=== PATIENT | female | born 1945 | race Caucasian/White ===

== ENCOUNTER 2016-08-27 09:45 | Inpatient (IN) | payer MEDICARE, OTHER ==
[~2016-08-27] VITALS: Ht 152.4 cm; Wt 83.3 kg
[~2016-08-27 09:45] MED LIST: AMBIEN5 MG PO; MULTIPLE VITAMI1 TA1 PO; NORCO 10/325 TA1 TA1 PO; TYLENOL ARTHRI650 MG PO
[2016-08-27 14:11] LABS: BASOPHILS 0.1 % (0.0-2.0); EOSINOPHILS 0.1 % (0-7); HEMATOCRIT 43.4 % (36.0-48.0); HEMOGLOBIN 14.8 g/dL (12-16); IMMATURE GRANULOCYTES 0.1 % (0-5); LYMPHOCYTES 20.7 % (15-50); MCH 30.1 pg (26.0-34.0); MCHC 34.1 g/dL (31.0-37.0); MCV 88.4 fL (80.0-100.0); MEAN PLATELET VOLUME 10.4 fL (7.4-10.4); MONOCYTES 7.6 % (2-11); NEUTROPHILS 71.4 % (40-80); PLATELET COUNT 232 10x3/uL (130-400); RBC 4.91 10x6/uL (4.00-5.40); RDW 12.3 % (11.5-14.5); WBC 7.1 10x3/uL (4.8-10.8)
[2016-08-27 14:26] LABS: ALBUMIN 3.8 g/dL (3.4-5.0); ALKALINE PHOSPHATASE 80 U/L (46-116); ALT (SGPT) 29 U/L (10-68); BILIRUBIN - TOTAL 0.46 mg/dL (0.2-1.3); CALC OSMOLALITY 278 mosm/kg (275-300); CALCIUM 9.2 mg/dL (8.5-10.1); CARBON DIOXIDE 32.2 mmol/L (21.0-32.0); CHLORIDE - SERUM 100 mmol/L (98-107); CREATININE - SERUM 0.8 mg/dL (0.6-1.3); GLUCOSE 128 mg/dL (74-106); POTASSIUM - SERUM 4.2 mmol/L (3.5-5.1); PROTEIN - SERUM 8.2 g/dL (6.4-8.2); SODIUM 138 mmol/L (136-145); UREA NITROGEN 15 mg/dL (7-18); eGFR NON AFRICAN AMERICAN 75 mL/min (90-120)
[2016-08-27 14:27] LABS: APTT 25.6 SECONDS (22.8-39.4); INR 1.03 (0.85-1.17); PROTIME 13.3 SECONDS (11.6-15.0)
[2016-08-27 14:36] LABS: TROPONIN-I < 0.017 ng/mL (0.000-0.060)
[2016-08-27 14:47] LABS: APPEARANCE CLEAR (CLEAR); BILIRUBIN NEGATIVE (NEGATIVE); COLOR YELLOW (YELLOW); GLUCOSE NEGATIVE (NEGATIVE); KETONE NEGATIVE (NEGATIVE); LEUKOCYTE ESTERASE NEGATIVE (NEGATIVE); NITRITE NEGATIVE (NEGATIVE); PROTEIN NEGATIVE (NEGATIVE); UROBILINOGEN NORMAL (NORMAL)
--- NOTE | 2016-08-27 18:37 | NUR ---
1835-RECEIVED VIA WHEELCHAIR TO ROOM, GO TO RESTROOM TO VOID. SALINE LOCK SEEN TO RIGHT HAND, WILL PLACE ON HEART MONITOR ORDERED. EMESIS BAG GIVEN TO PATIENT. WILL ADMIT.
[2016-08-27] MEDS ORDERED: ULTRAM50 MG PO (18:42)
[2016-08-27] MEDS ORDERED: COREG12.5 MG PO (18:43)
[2016-08-27] MEDS ORDERED: CELEBREX200 MG PO (18:43)
[2016-08-27] MEDS ORDERED: HYDROCHLOROTH12.5 M1 PO (18:43)
[2016-08-27] MEDS ORDERED: DETROL LA4 MG PO (18:44)
--- NOTE | 2016-08-27 19:54 | NUR ---
RESUME CARE OF PT, IV-R. HAND-NS@ 75, [id number], DENIES ANY NEEDS, CALL LIGHT IN REACH, BED IS LOW, SRX2, WILL CONTINUE TO MONITOR
--- NOTE | 2016-08-27 20:22 | NUR ---
SCD ARE ON BILATERAL LOWER LEGS
[2016-08-27 21:44] VITALS: BP 168/59
[2016-08-28 00:01] VITALS: Ht 152.4 cm; Wt 83.3 kg
[2016-08-28 00:35] VITALS: BP 132/55
--- NOTE | 2016-08-28 03:06 | NUR ---
PT SLEEPING, CALL LIGHT IN REACH, SCD ARE ON, BED IS LOW, SRX2,
[2016-08-28 04:36] VITALS: BP 148/56
[2016-08-28 05:11] LABS: BASOPHILS 0.3 % (0.0-2.0); EOSINOPHILS 1.2 % (0-7); HEMATOCRIT 38.6 % (36.0-48.0); HEMOGLOBIN 12.8 g/dL (12-16); IMMATURE GRANULOCYTES 0.2 % (0-5); LYMPHOCYTES 35.7 % (15-50); MCH 29.8 pg (26.0-34.0); MCHC 33.2 g/dL (31.0-37.0); MEAN PLATELET VOLUME 10.4 fL (7.4-10.4); MONOCYTES 8.7 % (2-11); NEUTROPHILS 53.9 % (40-80); PLATELET COUNT 231 10x3/uL (130-400); RBC 4.29 10x6/uL (4.00-5.40); RDW 12.4 % (11.5-14.5); WBC 6.6 10x3/uL (4.8-10.8)
[2016-08-28 05:27] LABS: ANION GAP 11.1 mmol/L (8-16); CALCIUM 8.5 mg/dL (8.5-10.1); CARBON DIOXIDE 30.1 mmol/L (21.0-32.0); CREATININE - SERUM 0.9 mg/dL (0.6-1.3)
[2016-08-28 05:30] LABS: POTASSIUM - SERUM 3.2 mmol/L (3.5-5.1)
--- NOTE | 2016-08-28 07:47 | NUR ---
AM ROUNDING- PT SITTING UP IN BED WITH EYES OPEN RESTING. FAMILY MEMBERS AT BEDSIDE. DR. RAZA IS CURRENTLY IN ROOM. ON MONITOR SHOWING SB, HR 57. ON ROOM AIR. IV SEEN TO RIGHT HAND WITH NS RUNNING AT 75CC/HR. SCDS ON. PT IS ALERT AND ORIENTED. NO NEED AT CURRENT TIME. WILL CONTINUE TO MONITOR AND CONTINUE WITH PLAN OF CARE.
[2016-08-28 08:00] VITALS: BP 145/60
--- NOTE | 2016-08-28 08:03 | NUR ---
ULTR[facility] CALLED AND STATED TO HAVE PT NPO FOR PROCEDURE AND TO HAVE 18G OR 20G CATHETER. WENT AND INFORMED PT TO NOT EAT OR DRINK ANYTHING UNTIL AFTER PROCEDURE. PLACED NPO SIGN ON DOOR. PT AGREED. ULTRASOUND STATED IT WAS FINE TO GO AHEAD AND GIVE PT HER AM MEDICATION WITH SIP OF WATER (ASPIRIN AND COREG). WILL CONTINUE TO MONITOR.
--- NOTE | 2016-08-28 10:02 | NUR ---
INSERTED 20G IV CATHETER TO PTS LEFT FOREARM X2 STICK. TOLERATED WELL. CT REQUESTED A 18G OR 20G FOR PROCEDURE. CALLED CT TO INFORM THEM OF THIS. WILL CONTINUE TO MONITOR.
--- NOTE | 2016-08-28 10:34 | NUR ---
1025- PT TO CT VIA WHEELCHAIR.
--- NOTE | 2016-08-28 11:06 | NUR ---
1050- PT BACK FROM CT VIA WHEELCHAIR. WILL CONTINUE TO MONITOR.
[2016-08-28 12:00] VITALS: BP 151/55
--- NOTE | 2016-08-28 12:29 | HP ---
PATIENT: JACKELYN SHERIFF MEDICAL RECORD: [id number] ACCOUNT: [id number] LOCATION:[address] : 43 ADMISSION DATE: 08/27/16 HISTORY AND PHYSICAL EXAMINATION HISTORY OF PRESENT ILLNESS: A 70-year-old female who presented to the Emergency Room with severe dizziness, unsteady gait, could barely stand unassisted, was initially dry had to slow down, could barely stay on the proper nabeel, made it home, symptoms persisted, presented to the Emergency Room. PAST MEDICAL HISTORY: Significant for hypertension. PAST SURGICAL HISTORY: Hysterectomy, bunionectomy and cholecystectomy. CURRENT MEDICATIONS: Listed as carvedilol 12.5 mg b.i.d., Detrol for overactive bladder and diuretic. ALLERGIES: No known drug allergies. REVIEW OF SYSTEMS: GENERAL: No acute change in weight or appetite. HEENT: Denies cephalgia. Does admit sinus and ear pressure. Denies visual changes. Denies tinnitus, epistaxis, or dysphagia. CARDIOVASCULAR: Denies chest pain or palpitations. PULMONARY: Denies hemoptysis. Denies night sweats. CARDIOVASCULAR: Denies chest pain or palpitations. PULMONARY: Denies hemoptysis. GASTROINTESTINAL: Denies hematemesis, hematochezia, or melena. Does admit to nausea and vomiting with the room spinning sensation. GENITOURINARY: Denies dysuria. Denies any change in frequency. MUSCULOSKELETAL: No acute changes. NEUROLOGIC: Ataxic gait, falls if unassisted. Acute onset. Room spinning sensation with rotation with brisk head movements. PHYSICAL EXAMINATION: VITAL SIGNS: Temp 97.4, blood pressure 133/57, heart rate 54, respirations 16 and O2 sats 94% on room air. GENERAL: Alert, oriented, yzna-tl-espdzyit distress secondary to above. HEENT: Normocephalic and atraumatic. Eyes: Pupils are equal, round and reactive. Nose: Nares patent. Throat: No erythema, no exudates. NECK: Supple. No lymphadenopathy, no JVD and no carotid bruits. HEART: Regular rate and rhythm. No S3, S4. No rub. LUNGS: Clear to auscultation bilaterally. Breathing is nonlabored. ABDOMEN: Soft, nontender. Bowel sounds in all 4 quadrants. EXTREMITIES: Present times 4. No edema. NEUROLOGIC: Cranial nerves II through XII appear intact. Ataxic/unsteady gait with standing, with any attempt at ambulation. LABORATORY DATA: CT of the head without contrast, no acute intracranial pathology. Chest x-ray, mild interstitial prominence. No significant change. Urinalysis: Yellow, clear, normal UA. CBC: White count 7.1, hemoglobin 14.8, hematocrit 43.4 and platelets 232. PT is 13.3, INR is 1.03. Sodium 138, potassium 4.2, chloride 100, bicarbonate 32.2, BUN 15, creatinine 0.8, glucose 128. T-bili 0.46, AST 26, ALT 29. Troponin less than 0.017. Albumin 3.8. HISTORY AND PHYSICAL [id number] JACKELYN SHERIFF ASSESSMENT AND PLAN: Persistent nausea and vomiting, unsteady gait, falls, vertigo symptoms. Neurology consulted. We will also support with cautious IV hydration with normal saline 75 mL per hour. Zofran 4 mg IV q.4 hours p.r.n. nausea and vomiting. With present blood pressure slightly low, we will reduce her dose on her carvedilol to 6.25 mg p.o. b.i.d., monitor. Supportive care. Meclizine 25 mg p.o. q.8 hours p.r.n. for vertigo symptoms. Also, concern for possible transient ischemic attack, cerebrovascular accident. Again, neurology was consulted to further evaluate. TRANSINT:[id number] Voice Confirmation ID: [id number] DOCUMENT ID: [id number] CHRIS LOVE DO at 1229 CC: [id number] DICTATION DATE: 08/27/161942 [employer] SUPERINTENDENT: 08/27/162045 ADM IN [facility] [address] [place] [address]
--- NOTE | 2016-08-28 13:03 | NUR ---
MI WITH TELEMETRY INFORMED ME THAT PT WENT INTO UNCONTROLLED A-FIB WITH HR OF 111. WENT TO CHECK ON PT AND PT STATES " I FEEL FINE". INSTRUCTED PT TO USE CALL LIGHT AND NOTIFY STAFF IF HAVING ANY ABNORMAL SYMPTOMS, PT AGREED. DR. AGUIAR IS ON UNIT. INFORMED DR. AGUIAR OF THIS. DR. AGUIAR STATED TO DO AN EKG ON PT STAT. DID AN EKG ORDERED. WILL CONTINUE TO MONITOR.
[2016-08-28 16:00] VITALS: BP 161/60
--- NOTE | 2016-08-28 17:01 | NUR ---
PT LAYING IN BED ON BACK WITH EYES CLOSED RESTING. NO NEED AT CURRENT TIME. WILL CONTINUE TO MONITOR.
--- NOTE | 2016-08-28 19:15 | NUR ---
RECEIVED REPORT, IV-R.HAND-EMMETT, LFA-NS-75, [id number], BED IS LOW, SRX2, SCD ARE ON, DENIES ANY NEEDS, CALL LIGHT IN REACH, WILL CONTINUE TO MONITOR
[2016-08-28 20:30] VITALS: BP 110/50
[2016-08-29 00:30] VITALS: BP 136/52
--- NOTE | 2016-08-29 00:56 | NUR ---
COASTAL AND ESTUARY SPECIALIST AT BEDSIDE FOR VS, NEEDS ADDRESSED. CALL LIGHT IN REACH. WILL CONT TO MONITOR.
--- NOTE | 2016-08-29 03:20 | NUR ---
EYES CLOSED, CALL LIGHT IN REACH, BED IS LOW, SCD ON,WILL CONTINUE TO MONITOR
[2016-08-29 04:30] VITALS: BP 144/63
[2016-08-29 05:14] LABS: BASOPHILS 0.1 % (0.0-2.0); EOSINOPHILS 2.5 % (0-7); HEMATOCRIT 38.4 % (36.0-48.0); HEMOGLOBIN 12.7 g/dL (12-16); IMMATURE GRANULOCYTES 0.1 % (0-5); LYMPHOCYTES 34.8 % (15-50); MCH 30.4 pg (26.0-34.0); MCHC 33.1 g/dL (31.0-37.0); MCV 91.9 fL (80.0-100.0); MEAN PLATELET VOLUME 10.5 fL (7.4-10.4); MONOCYTES 7.8 % (2-11); NEUTROPHILS 54.7 % (40-80); RBC 4.18 10x6/uL (4.00-5.40); RDW 12.6 % (11.5-14.5); WBC 6.7 10x3/uL (4.8-10.8)
[2016-08-29 05:18] LABS: PLATELET COUNT 184 10x3/uL (130-400)
[2016-08-29 05:27] LABS: ANION GAP 7.9 mmol/L (8-16); CALCIUM 7.8 mg/dL (8.5-10.1); CARBON DIOXIDE 30.3 mmol/L (21.0-32.0); POTASSIUM - SERUM 4.2 mmol/L (3.5-5.1)
--- NOTE | 2016-08-29 07:22 | NUR ---
AM ROUNDING- PT LAYING IN BED ON LEFT SIDE WITH EYES CLOSED RESTING. HOB ELEVATED AT 30 DEGREES. ON MONITOR SHOWING SR, HR 62. IV SEEN TO RIGHT HAND THAT IS CURRENLTY SALINE LOCKED. 20G IV SEEN TO LEFT FOREARM WITH NS RUNNING AT 75CC/HR. ON ROOM AIR. SCDS ARE CURRENLTY ON PT. NO NEED AT CURRENT TIME. WILL CONTINUE TO MONITOR AND CONTINUE WITH PLAN OF CARE.
[2016-08-29 08:00] VITALS: BP 167/57
[2016-08-29 12:00] VITALS: BP 164/59
[2016-08-29 16:00] VITALS: BP 155/49
--- NOTE | 2016-08-29 18:23 | NUR ---
PT LAYING IN BED ON BACK WITH EYES OPEN RESTING. IV INFUSING. ON ROOM AIR. DENIES ANY NEED AT CURRENT TIME. WILL CONTINUE TO MONITOR.
[2016-08-29 20:00] VITALS: BP 153/44
--- NOTE | 2016-08-29 20:26 | NUR ---
RESUMED CARE OF PT, LYING IN BED WIHT EYES CLOSED RESPIRATIONS EVEN AND UNLABORED ON ROOM AIR. 56 SB ON TELEMETRY. RIGHT HAND SALINE LOCKED AND LEFT FOREARM INFUSING NS @ 75. NO NEEDS NOTED AT THIS TIME, WILL CONTINUE TO MONITOR. SEE NURSE ASSESSMENT. CALL LIGHT IN REACH.
[2016-08-30 00:15] VITALS: BP 120/41
[2016-08-30 04:42] VITALS: BP 166/47
[2016-08-30 05:37] LABS: ANION GAP 9.3 mmol/L (8-16); CALCIUM 8.3 mg/dL (8.5-10.1); CARBON DIOXIDE 29.4 mmol/L (21.0-32.0); CREATININE - SERUM 0.9 mg/dL (0.6-1.3); POTASSIUM - SERUM 3.7 mmol/L (3.5-5.1)
--- NOTE | 2016-08-30 06:07 | NUR ---
NO CHANGES FROM PREVIOUS ASSESSMENT, CALL LIGHT IN REACH.
--- NOTE | 2016-08-30 08:09 | NUR ---
ASSESSMENT DONE. PT LAYING IN BED WATCHING TV. A/O. MAILROOM CLERK IN ROOM WITH PT. PT C/O PAIN. NO MEDS ORDERED, AWAITING DR'S ORDER. PT DENIES OTHER NEEDS AT THIS TIME. CALL LIGHT WITH IN REACH. WILL CONT. TO MONITOR.
--- NOTE | 2016-08-30 08:41 | NUR ---
IV PATENT. STUDENT AT BS ASSISTING TO BR. WILL CONT. PLAN OF CARE.
[2016-08-30 08:50] VITALS: BP 122/82
--- NOTE | 2016-08-30 10:09 | EC ---
PATIENT:JACKELYN SHERIFF DATE OF SERVICE: 08/27/16 SEX: F MEDICAL RECORD: [id number] DATE OF : 41 LOCATION:D.M2 D.213 AGE OF PATIENT: 70 ADMISSION DATE: 08/27/16 REFERRING PHYSICIAN: INTERPRETING PHYSICIAN: MARK JARQUIN MD ECHOCARDIOGRAM REPORT ECHO CHARGES 4 ECHO COMPLETE CLINICAL DIAGNOSIS: CEREB.INFARCT ECHOCARDIOGRAPHIC MEASUREMENTS (adult normal given) AC root (d.<3.7cm) 2.9 LV Septum d (<1.2 cm> 1.4 Valve Excursion 1.7 LV Septum (systole) 2.1 Left Atria (s.<4.0cm> 3.9 LVPW d(<1.2cm) 1.4 RV (d.<2.3cm) 2.8 LVPW (sytole) 2.1 LV diastole(<5.6CM) 5.3 MV E-F(>70mm/sec) LV systole 3.5 LVOT Diameter 1.7 MV exc.(>10mm) Est.ejection fraction (50-75%) Pericardial Effusion N DOPPLER: LVIT A 89.0 E 114 LA RVSP 32.0 LVOT 142 AOP1/2T Asc. Ao 180 RVOT 73.0 RA PA 97.0 AV Gradient Peak 13.0 AV Mean 6.7 AV Area 1.6 MV Gradient Peak 7.5 MV Mean 2.0 MV Area COMMENTS: ECHO WITH BUBBLE STUDY Railway Signal Electrician: Mayo BEAR Supervisor Cutting Department:1 Dr. Jarquin TAPE# PACS DATE OF SERVICE: 08/28/2016 FINDINGS: 1. Left ventricular chamber size is within normal limits. Left ventricular systolic function is normal. Overall ejection fraction estimated at 60%. 2. Left atrium, right atrium and right ventricular chamber sizes are within normal limits. 3. Valvular structures have normal structure and motion. 4. Doppler interrogation reveals only mild mitral regurgitation, mild tricuspid regurgitation. No other valvular insufficiency or stenosis. ECHOCARDIOGRAM REPORT [id number] JACKELYN SHERIFF 5. No evidence of pericardial effusion or left ventricular thrombus. 6. No cardiac source of neurologic emboli. 7. Bubble study was done. There is no seahg-sy-bgfz or qprg-xv-lfpjx shunt. TRANSINT:[id number] Voice Confirmation ID: [id number] DOCUMENT ID: [id number] MARK JARQUIN MD at 1009 CC: [id number] DICTATION DATE: 08/29/16 1154 GLAZE HANDLER: 08/29/16 2237 ADM IN [place] [id number] [place] [id number]
[2016-08-30 11:01] VITALS: BP 129/52
--- NOTE | 2016-08-30 14:25 | NUR ---
IV TO PT'S LEFT FA INFILTRATED. D/C'D IV. GROUNDS MAINTENANCE MANAGER REPLACED WITH 20G TO RT FOREARM. IV TO RT HAND D/C'D WELL. PT AMBULATING IN HALLS WITH PT. TOLERATING WELL.
--- NOTE | 2016-08-30 14:51 | NUR ---
MID-STREAM URINE COLLECTION KIT TAKEN INTO PT'S ROOM. PT EDUCATED ON HOW TO PROVIDE MID-STREAM URINE SAMPLE. VERBALIZED UNDERSTANDING.
[2016-08-30 15:00] VITALS: BP 151/50
[2016-08-30 18:19] LABS: APPEARANCE CLEAR (CLEAR); BILIRUBIN NEGATIVE (NEGATIVE); COLOR YELLOW (YELLOW); GLUCOSE NEGATIVE (NEGATIVE); KETONE NEGATIVE (NEGATIVE); LEUKOCYTE ESTERASE NEGATIVE (NEGATIVE); NITRITE NEGATIVE (NEGATIVE); PROTEIN NEGATIVE (NEGATIVE); SPECIFIC GRAVITY 1.015 (1.005-1.020); UROBILINOGEN NORMAL (NORMAL)
--- NOTE | 2016-08-30 19:55 | NUR ---
GETTING BACK IN BED FROM USING THE BATHROOM, DENIES NEEDS, ASSESSMENT COMPLETE, CALL LIGHT IN REACH, BED LOWEST POSITION, WILL CONTINUE TO MONITOR
[2016-08-30 20:00] VITALS: BP 127/48
--- NOTE | 2016-08-31 00:27 | NUR ---
GASOLINE POWER SHOVEL OPERATOR AT BEDSIDE FOR VS, NEEDS ADDRESSED. CALL LIGHT IN REACH. WILL CONT TO MONITOR.
[2016-08-31 02:00] VITALS: BP 137/50
[2016-08-31 04:00] VITALS: BP 173/57
[2016-08-31 04:17] LABS: BASOPHILS 0.3 % (0.0-2.0); EOSINOPHILS 3.4 % (0-7); HEMATOCRIT 36.3 % (36.0-48.0); HEMOGLOBIN 12.3 g/dL (12-16); IMMATURE GRANULOCYTES 0.1 % (0-5); LYMPHOCYTES 31.4 % (15-50); MCH 30.7 pg (26.0-34.0); MCHC 33.9 g/dL (31.0-37.0); MCV 90.5 fL (80.0-100.0); MONOCYTES 9.9 % (2-11); NEUTROPHILS 54.9 % (40-80); PLATELET COUNT 176 10x3/uL (130-400); RBC 4.01 10x6/uL (4.00-5.40); RDW 12.2 % (11.5-14.5); WBC 7.2 10x3/uL (4.8-10.8)
[2016-08-31 04:50] LABS: ANION GAP 8.3 mmol/L (8-16); CALCIUM 8.4 mg/dL (8.5-10.1); CARBON DIOXIDE 34.1 mmol/L (21.0-32.0); POTASSIUM - SERUM 3.4 mmol/L (3.5-5.1)
[2016-08-31] MEDS ORDERED: LISINOPRIL10 MG PO (06:51)
[2016-08-31] MEDS ORDERED: MECLIZINE HCL12.5 MG PO (06:53)
--- NOTE | 2016-08-31 07:59 | NUR ---
ASSESSMENT DONE. PT A/O. STATES DIZZINESS HAS IMPROVED. DENIES NEEDS AT THIS TIME. CALL LIGHT WITH IN REACH. WILL CONT. TO MONITOR.
[2016-08-31 08:39] VITALS: BP 138/63
--- NOTE | 2016-08-31 09:32 | NUR ---
RESTS IN BED WITHOUT NEEDS VOICED. VISITOR AT BS. CALL LIGHT IN REACH. WILL CONT. PLAN OF CARE.
--- NOTE | 2016-08-31 10:25 | NUR ---
D/C INSTRUCTIONS GIVEN TO PT. PT VERBALIZED UNDERSTANDING. IV REMOVED, AND TELEMETRY REMOVED. PT AWAITING TRANSPORTATION HOME.
--- NOTE | 2016-08-31 10:46 | NUR ---
Patient Name: JACKELYN SHERIFF Admission Status: ER Accout number: [id number] Admission Date: 08-27-2016 : 1945 Admission Diagnosis: Attending: LUIS FERNANDO Current LOS: 4 Anticipated DC Date: 08-31-2016 Planned Disposition: Home Primary Insurance: MEDICARE A & B Discharge Planning Comments: * Is the patient Alert and Oriented? Yes 0 * How many steps to enter\exit or inside your home? 3 0 * PCP DR. SPEARS 0 * Pharmacy [facility] 0 * Preadmission Environment Home with Family 0 * ADLs Independent 0 * Equipment Cane Walker Wheelchair 0 * Other Equipment PT REPORTS HAVING MEDICAL EQUIPMENT FROM [facility], NO PROVIDER PREFERENCE 0 * List name and contact numbers for known caregivers / representatives who currently or will assist patient after discharge: NANCY SUNG, SON, 0 * Community resources currently utilized None 0 * Please name any agencies selected above. NONE 0 * Additional services required to return to the preadmission environment? No 0 * Can the patient safely return to the preadmission environment? Yes 0 * Has this patient been hospitalized within the prior 30 days at any hospital? No 0 CM MET WITH PT IN ROOM TO DISCUSS DISCHARGE PLANNING AND NEEDS. PT REPORTS LIVING AT HOME INDEPENDENTLY WITH HER ADULT SON ADN DAUGHTER IN LAW. PT HAS CANE, WALKER AND WHEELCHAIR THAT SHE DOES NOT USE AT HOME. PT HAS NO MEDICAL EQUIPMENT PROVIDER PREFERNCE. PT HAS NO OUTSIDE SERVICES ASSISTING IN THE HOME. CM DISCUSSED AVAILABILITY OF HOME HEALTH, REHAB SERVICES AND MEDICAL EQUIPMENT. PT DENIES DISCHARGE NEEDS, REPORTS HER DAUGHTER IN LAW WILL PICK HER UP FOR DISCHARGE HOME. IMPORTANT MESSAGE FROM MEDICARE PROVIDED AND EXPLAINED. Caramel Coloring Operator: Ross Matson
--- NOTE | 2016-08-31 10:50 | NUR ---
PT D/C HOME VIA PRIVATE VEHICLE. NURSE STUDENT ASSISTED PT TO FRONT ENTRANCE VIA WC TO MEET PT'S DAUGHTER.
--- NOTE | 2016-10-17 08:20 | DS ---
PATIENT:JACKELYN SHERIFF :41 MEDICAL RECORD: [id number] DISCHARGE SUMMARY ADMISSION DATE: 08/27/16 DISCHARGE DATE: 08/31/16 DATE OF ADMISSION: 08/27/2016 DATE OF DISCHARGE: 08/31/2016 CONDITION ON DISCHARGE: Improved. ADMITTING DIAGNOSES: Persistent nausea and vomiting, unsteady gait, falls and vertigo. DISCHARGE DIAGNOSES: Dizziness, unsteady gait, essential hypertension, nausea, vomiting and history of falling. HOSPITAL COURSE: The patient is a 70-year-old female who presented to the Emergency Room complaining of severe dizziness and unsteady gait, she could barely stand unassisted, it was felt the patient should be admitted. PHYSICAL EXAMINATION: VITAL SIGNS: Her blood pressure 133/57, pulse 54, respirations 16, temperature is 97 and O2 sat of 94% on room air. HEENT: Unremarkable. GENERAL: She was in mild to moderate distress. HEART: Had a regular rhythm. No murmurs, gallops, or rubs. LUNGS: Clear. ABDOMEN: Soft, bowel sounds positive. NEUROLOGIC: Cranial nerves II through XII grossly intact. The patient had an unsteady gait on attempt to ambulate. CT of the Head without contrast showed no pathology. Chest x-ray showed no cardiomegaly, no active infiltrates. LABORATORY DATA: CBC was unremarkable. The patient's sodium was 138, potassium 4.2, chloride 100, BUN 15, creatinine 0.8, her glucose was 128. Cardiac enzymes were unremarkable. The patient was admitted. Neurology consultation was obtained. The patient was seen in consultation by Dr. Jaime Hernandez. The patient had a head CTA showing mild vascular calcification in the carotid bifurcation region, no evidence of stenosis, dominant left vertebral artery. No intracranial vascular pathology could be identified. She also had cranial MRI, which showed minimal atrophy with only very slight findings of chronic small vessel ischemia, no significant findings. No hemorrhage was noted. No ischemia CTA of the neck revealed mild vascular calcification within the carotid bifurcation, no evidence of stenosis. Chest x-ray on the showed no acute cardiopulmonary processes. The patient's symptoms totally resolved. She was experiencing less dizziness. The patient was therefore discharged on the . MEDICATIONS: Included lisinopril 10 mg 1 p.o. daily, aspirin 325 mg once a day, Coreg 6.25 b.i.d., Zofran 4 mg p.o. q.4 hours p.r.n. nausea and vomiting and meclizine 25 mg one every 4-6 hours p.r.n. dizziness. She is to follow up with me in approximately 1 week. DISCHARGE SUMMARY REPORT [id number] JACKELYN SHERIFF ACTIVITIES: Ad génesis. TRANSINT:[id number] Voice Confirmation ID: [id number] DOCUMENT ID: [id number] SIMONA SPEARS MD at 0820 CC: [id number] DICTATION DATE: 10/16/16 1517 LIFTS AND CRANES INSPECTOR: 10/16/16 1825 DIS IN 08/31/16 [place] [id number] [place] [address]
== END 2016-08-31 10:55 | disposition home or self-care (01) | DRG 149 ==
LOC: D.ER 09:45 → D.M2 16:42
PROVIDERS: Emergency Medicine; Family Medicine; ADMIT Family Medicine
DX: R42 Dizziness and giddiness (principal); I10 Essential (primary) hypertension; R11.2 Nausea with vomiting, unspecified; Z91.81 History of falling

== ENCOUNTER → 2017-03-23 17:40 | Outpatient (CLI) | payer MEDICARE, OTHER ==
[2016-08-28 00:01] VITALS: BMI 27.0
[~2017-03-23 17:40] MED LIST changes: +CELEBREX200 MG PO; +COREG12.5 MG PO; +DETROL LA4 MG PO; +HYDROCHLOROTH12.5 M1 PO; +LISINOPRIL10 MG PO; +MECLIZINE HCL12.5 MG PO; +ULTRAM50 MG PO
== END | disposition home or self-care (01) ==
LOC: D.MAMMO 03-17 16:00
DX: Z12.31 Encounter for screening mammogram for malignant neoplasm of breast (principal)

== ENCOUNTER → 2017-04-14 14:15 | Outpatient (CLI) | payer MEDICARE, OTHER ==
[2016-08-28 00:01] VITALS: BMI 27.0
== END | disposition home or self-care (01) ==
LOC: D.MAMMO 09:00
DX: Z12.31 Encounter for screening mammogram for malignant neoplasm of breast (principal)